=== PATIENT | female | born 1950 | race Caucasian/White ===

== ENCOUNTER → 2017-07-26 | Outpatient (CLI) | payer OTHER | LOC: FIMAGING 07:48 | PROVIDERS: ATTEND Surgery | DX: Z12.31 Encounter for screening mammogram for malignant neoplasm of breast (principal) | CPT/HCPCS: G0202 ==

== ENCOUNTER → 2018-07-28 | Outpatient (CLI) | payer OTHER | LOC: FIMAGING 09:39 | PROVIDERS: ATTEND Surgery | DX: Z12.31 Encounter for screening mammogram for malignant neoplasm of breast (principal); R92.8 Other abnormal and inconclusive findings on diagnostic imaging of breast ==

== ENCOUNTER → 2018-08-23 | Outpatient (CLI) | payer OTHER | LOC: FIMAGING 10:02 | DX: R92.8 Other abnormal and inconclusive findings on diagnostic imaging of breast (principal) ==

== ENCOUNTER 2018-11-22 06:25 | Day surgery (SDC) | payer OTHER ==
[2018-11-22] MEDS ORDERED: LR 1,000 ML IV ONE (06:45)
[2018-11-22] MEDS ORDERED: LIDOCAINE 1% 2 ML INJ ID PRN (06:45)
--- NOTE | 2018-11-22 07:53 | PDANEPAE ---
ANE History of Present Illness here for hysteroscopy ANE Past Medical History - Cardiovascular History Hx Hypertension: No Hx Arrhythmias: No Hx Chest Pain: No Hx Coronary Artery / Peripheral Vascular Disease: No Hx CHF / Valvular Disease: No Hx Palpitations: No - Pulmonary History Hx COPD: No Hx Asthma/Reactive Airway Disease: No Hx Recent Upper Respiratory Infection: No Hx Oxygen in Use at Home: No Hx Sleep Apnea: No Sleep Apnea Screening Result - Last Documented: Negative - Neurologic History Hx Cerebrovascular Accident: No Hx Seizures: No Hx Dementia: No - Endocrine History Hx Diabetes: No - Renal History Hx Renal Disorders: No - Liver History Hx Hepatic Disorders: No - Neurological & Psychiatric Hx Hx Neurological and Psychiatric Disorders: No - Cancer History Hx Cancer: No - Congenital Disorder History Hx Congenital Disorders: No - GI History Hx Gastrointestinal Disorders: No - Other Health History Other Health History: dry nail beds. uterine polyps - Chronic Pain History Chronic Pain: No - Surgical History Prior Surgeries: tooth extraction. c-sections x 3. colonoscopies ANE Review of Systems Review of systems is: negative Review of Systems: - Exercise capacity METS (RN): 6 METS ANE Patient History - Allergies Allergies/Adverse Reactions: Sulfa (Sulfonamide Antibiotics) Allergy (Verified 11/08/18 16:13) Rash - Home Medications Home medications: home medication list seen and reviewed Home Medications: Advil 11/08/18 [Last Taken 11/11/18] Ambien 11/08/18 [Last Taken 11/21/18] Atorvastatin Calcium 11/08/18 [Last Taken 11/22/18] Estradiol 11/08/18 [Last Taken 11/17/18] Fish Oil 1,000 mg Softgel 11/08/18 [Last Taken 11/11/18] Levothyroxine 11/08/18 [Last Taken 11/22/18 05:00] Multivitamin 11/08/18 [Last Taken 11/11/18] Progesterone 11/08/18 [Last Taken 11/22/18 05:00] Sudafed 12 Hour 11/08/18 [Last Taken 11/11/18] Xyzal 11/08/18 [Last Taken 11/11/18] - NPO status NPO Status: no food or drink >8 hours NPO Since - Liquids (Date): 11/21/18 NPO Since - Liquids (Time): 18:00 NPO Since - Solids (Date): 11/21/18 NPO Since - Solids (Time): 18:00 - Smoking Hx Smoking Status: Former smoker - Family Anes Hx Family Hx Anesthesia Complications: none ANE Labs/Vital Signs - Vital Signs Vital Signs: reviewed preoperatively; see RN documention for details Blood Pressure: 140/85 Heart Rate: 70 Respiratory Rate: 20 O2 Sat (%): 94 Height: 167.64 cm Weight: 79.379 kg ANE Physical Exam - Airway Neck exam: FROM Mallampati Score: Class 1 - Pulmonary Pulmonary: no respiratory distress - Cardiovascular Cardiovascular: regular rate and rhythym - ASA Status ASA Status: II ANE Anesthesia Plan Anesthesia Plan: GA with mask
[2018-11-22] MEDS ORDERED: MIDAZOLAM 2 MG/2 ML VIAL IVP ONE (08:01)
[2018-11-22] MEDS ORDERED: MIDAZOLAM 2 MG/2 ML VIAL ONE (08:02)
--- NOTE | 2018-11-22 08:06 | PDHPUP ---
History & Physical Update H&P update statement: This history and physical update is based on an assessment of the patient which was completed after admission or registration (within 24 hours), but prior to the surgery/procedure. H&P update: H&P reviewed & patient examined, no change in patient's condition since H&P completed
[2018-11-22] MEDS ORDERED: PROPOFOL/EMULSION 500 MG/50 ML BOTTLE IV ONE (08:11)
[2018-11-22] MEDS ORDERED: fentaNYL 100 MCG/2 ML INJ ONE (08:19)
[2018-11-22] MEDS ORDERED: KETOROLAC 30 MG/1 ML SDV ONE (08:45)
--- NOTE | 2018-11-22 09:26 | POSTOPPROG ---
Post Op Note Date of Operation: 11/22/18 Surgeon: Trinidad Marsh Anesthesiologist: Koffi Perez MD Anesthesia: LMA Pre-op Diagnosis: PMB, uterine polyps Post-op Diagnosis: same Indication: same Procedure: H/S polypectomy Findings: endometrial polyps Inf/Abcess present in the surg proc area at time of surgery?: No EBL: Minimal Bowel Protocol: N/A Clean Closure Performed: N/A
--- NOTE | 2018-11-22 09:57 | POSTANESTH ---
Post Anesthetic Evaluation Cardiovascular Status: Normal, Stable Respiratory Status: Normal, Stable Level of Consciousness/Mental Status: Can Participate in Eval Pain Control: Adequate, Prn Tx Ordered Nausea/Vomiting Control: Adequate, Prn Tx Ordered Complications Possibly Related to Anesthesia: None Noted
[2018-11-22 10:08] VITALS: BP 123/80
--- NOTE | 2018-11-24 12:31 | GOP ---
[f rep st] OPERATIVE REPORT DATE OF OPERATION: 11/22/2018 SURGEON: Trinidad Marsh MD ANESTHESIA: General with LMA. ANESTHESIOLOGIST: Koffi Perez MD. PREOPERATIVE DIAGNOSIS: 1. Postmenopausal bleeding. 2. Endometrial polyps. POSTOPERATIVE DIAGNOSIS: 1. Postmenopausal bleeding. 2. Endometrial polyps. PROCEDURE PERFORMED: Cystoscopic polypectomy. FINDINGS: There is a posterior wall polyp, and then, a polyp in the right tubal ostia, and just extr a endometrial tissue in the fundus of the uterus. ESTIMATED BLOOD LOSS: Minimal. INDICATIONS: Patient is a 68-year-old who has known history of postmenopausal bleeding. Ultrasound sonohysterogram showed endometrial polyps and patient desires definitive treatment of these. She sche duled for that today. DESCRIPTION OF PROCEDURE: With informed consent signed. Patient taken to the operative room, placed under general anesthesia without complication, placed in a dorsal lithotomy position and bladder prev iously emptied, prepped and draped in the usual sterile fashion. Cervix was grasped with a tenaculum and dilated up to a 6 mm. Hysteroscope placed using normal saline as a filling medium and [employer] TruClear morcellator placed into the uterine cavity. Resect ion of all the endometrial tissue done without complication. Once it was felt that all the tissue was removed and hemostasis was obtained, the hysteroscope removed and net fluid deficit was 100 cc. Patient was awakened in the operating room, taken to recovery room in stable condition, tolerated pro cedure well. COMPLICATIONS: None. /[id number]/MODL
== END 2018-11-22 10:17 | disposition home or self-care (01) ==
LOC: FSGY 06:25
PROVIDERS: ATTEND Obstetrics & Gynecology Gynecology
PROC: 0UCB8ZZ Extirpation of Matter from Endometrium, Via Natural or Artificial Opening Endoscopic (ICD-10-PCS; principal; 2018-11-22 08:00)
DX: N84.0 Polyp of corpus uteri (principal); N95.0 Postmenopausal bleeding
CPT/HCPCS: 58558; C1782; J1885; J2250; J2704; J3010